=== PATIENT | male | born 1940 | race Caucasian/White ===

== ENCOUNTER 2019-01-01 16:43 | Inpatient (IN) | payer MEDICARE ==
--- NOTE | 2019-01-01 16:53 | ED ---
HPI Cardiac - HPI Summary HPI Summary: Patient is a 78 y/o M presenting to ED via EMS as a transfer from [place] with complaints of bradycardia and light-headedness. Patient states that this morning , he was driving a mini van, ate some food, sat in a chair and took a nap. When he awoke, he felt light-headed. Patient decided to measure his pulse and found that he is pulse was in 30s. He states that this onset around 1100 this morning , patient states that he has had similar Sx previously. CP and SOB are denied. PSHx of open heart surgery 8-9 years ago, patient had blocked arteries. Patient had to have stent placed due to graft failure some time afterwards. He was seen a month ago at [facility] for nuclear stress test. Patient is on metoprolol, metformin , last took these medications last night. Patient states he is also on plavix and crestor, notes that he was recently started on Lisinopril. PMHx of diabetes , angina, CAD, HTN, HLD. Patient is a former smoker, reports rare alcohol usage , denies substance usage. On triage, pain is denied, nothing is noted to aggravate/alleviate Sx. Home medications and allergies are reviewed. - History of Current Complaint Stated Complaint: BRADYCHARDIA PER EMS Hx Obtained From: Patient Onset/Duration: Started Hours Ago - onset 1100, Still Present Timing: Constant, Lasting Hours - onset 1100 Current Severity: None Pain Intensity: 0 Pain Scale Used: 0-10 Numeric Character: Other: - bradycardia Aggravating Factor(s): Nothing Alleviating Factor(s): Nothing Associated Signs and Symptoms: Positive: Dizziness - light-headedness, Palpitations - bradycardia. Negative: Chest Pain, Shortness of Breath - Allergy/Home Medications Allergies/Adverse Reactions: Allergies Allergy/AdvReac Type Severity Reaction Status Date / Time atorvastatin [From Lipitor] Allergy Leg Cramps Verified 09/25/18 09:50 Home Medications: Home Medications Aspirin EC TAB* [Ecotrin EC Low Dose 81 MG*] 81 mg PO DAILY 01/01/19 [History Confirmed 01/01/19] Clopidogrel TAB* [Plavix TAB*] 75 mg PO DAILY 01/01/19 [History Confirmed ] Lisinopril [Lisinopril 2.5 MG-] 2.5 mg PO DAILY 01/01/19 [History Confirmed ] Metoprolol Tartrate TAB* [Lopressor TAB*] 25 mg PO DAILY 01/01/19 [History Confirmed 01/01/19] Rosuvastatin (NF) [Crestor] 20 mg PO DAILY 01/01/19 [History Confirmed 01/01/19] metFORMIN* [Glucophage 1000 MG TAB *] 1,000 mg PO BID 01/01/19 [History Confirmed 01/01/19] PMH/Surg Hx/FS Hx/Imm Hx Endocrine/Hematology History: Reports: Hx Diabetes - metformin Cardiovascular History: Reports: Hx Angina, Hx Coronary Artery Disease, Hx Hypercholesterolemia, Hx Hypertension Denies: Hx Valvular Heart Disease Respiratory History: Denies: Hx Asthma, Hx Chronic Obstructive Pulmonary Disease (COPD) - Family History Known Family History: Positive: Other - FMHx of hodgkin's lymphoma - Social History Alcohol Use: Rare Alcohol Amount: 1 drink per month Substance Use Type: Reports: None Smoking Status (MU): Former Smoker Review of Systems Positive: Palpitations - bradycardia . Negative: Chest Pain Negative: Shortness Of Breath Neurological: Other - POSITIVE - DIZZINESS All Other Systems Reviewed And Are Negative: Yes Physical Exam - Summary Physical Exam Summary: Appearance: Well-appearing, Well-nourished, lying in bed comfortably Skin: Warm, dry, no obvious rash Eyes: sclera anicteric, no conjunctival pallor ENT: mucous membranes moist, pharynx appears normal Neck: Supple, nontender Respiratory: Clear to auscultation, no signs of respiratory distress Cardiovascular: Bradycardic. Normal S1, S2. No murmurs. Normal distal pulses in tibial and radial bilaterally. Abdomen: Soft, nontender, normal active bowel sounds present Musculoskeletal: Normal, Strength/ROM Intact Neurological: A&Ox3, awake and alert, mentation is normal, speech is fluent and appropriate Psychiatric: affect is normal, does not appear anxious or depressed Triage Information Reviewed: Yes Vital Signs On Initial Exam: Initial Vitals Resp 17 01/01/19 16:48 Vital Signs Reviewed: Yes Diagnostics - Laboratory Result Diagrams: 01/01/19 18:42 01/02/19 04:50 Lab Statement: Any lab studies that have been ordered have been reviewed, and results considered in the medical decision making process. - EKG 1710 Cardiac Rate: Bradycardia - rate of 38 BPM EKG Rhythm: Sinus Bradycardia Summary of EKG Findings: EKG showed sinus bradycardia with rate of 38 BPM, third degree heart block, RBBB. Disposition - Course Course Of Treatment: Patient is a 78 y/o M presenting to ED via EMS as a transfer from [place] with complaints of bradycardia and light-headedness. Patient states that upon waking from a nap at around 1100 this morning, he felt light-headed. Patient decided to measure his pulse and found that he is pulse was in 30s. CP and SOB are denied. Patient states that he has had similar Sx previously. PSHx of open heart surgery 8-9 years ago, patient had blocked arteries. Patient had to have stent placed due to graft failure some time afterwards. He was seen a month ago at [facility] for nuclear stress test. Patient is on metoprolol, metformin, last took these medications last night. Patient states he is also on plavix and crestor, notes that he was recently started on Lisinopril. PMHx of diabetes, angina, CAD, HTN, HLD. On physical exam, patient is noted to be bradycardic. EKG showed sinus bradycardia with rate of 38 BPM, third degree heart block, RBBB.Labs showed Hgb 13.7, MPV 6.6, glucose 135, magnesium 1.8, trop 0.01, TSH 1.12. Patient's case was discussed with Dr. Hicks, patient will be admitted by Dr. Hicks and surveying crew stake runner will be consulted. 1703 - Patient's case was discussed with Dr. Watson, Dr. Watson will come to ED to evaluate the patient. 1729 - Dr. Watson had evaluated the patient , patient's case was discussed. - Diagnoses Provider Diagnoses: Third degree heart block, Bradycardia - Physician Notifications Discussed Care Of Patient With: Aide Hicks Time Discussed With Above Provider: 16:55 Instructed by Provider To: Other - Patient's case was discussed with Dr. Hicks , patient will be admitted by Dr. Hicks and surveying crew stake runner will be consulted. 1703 - Patient's case was discussed with Dr. Watson, Dr. Watson will come to ED to evaluate the patient. 173 - Dr. Watson had evaluated the patient, patient's case was discussed. Discharge - Sign-Out/Discharge Documenting (check all that apply): Patient Departure - admit All imaging exams completed and their final reports reviewed: No Studies Patient Received Moderate/Deep Sedation with Procedure: No - Discharge Plan Condition: Good Disposition: ADMITTED TO [facility] - Billing Disposition and Condition Condition: GOOD Disposition: Admitted to [facility] - Attestation Statements Document Initiated by Jose L: Yes Documenting Scribe: PANTERA TITUS Provider For Whom Jose L is Documenting (Include Credential): KIMMIE BOONE MD Scribe Attestation: IPANTERA, scribed for KIMMIE BOONE MD on 01/02/19 at 1022. Scribe Documentation Reviewed: Yes Provider Attestation: The documentation as recorded by the PANTERA haro accurately reflects the service I personally performed and the decisions made by me, KIMMIE OBONE MD Status of Scribe Document: Viewed
[2019-01-01] MEDS ORDERED: Acetaminophen TAB* 325 MG PO PRN (18:15)
[2019-01-01] MEDS ORDERED: Dextrose 50% Syringe 50 ML* 25 GM/50 ML SYRINGE IV PUSH PRN (18:22)
[2019-01-01 18:49] LABS: Hematocrit 42 % (42-52); Hemoglobin 13.7 g/dL (14.0-18.0); Mean Corpuscular HGB Conc 33 g/dL (31-36); Mean Corpuscular Hemoglobin 27 pg (27-31); Mean Corpuscular Volume 82 fL (80-94); Mean Platelet Volume 6.6 fL (7.4-10.4); Platelet Count 266 10^3/uL (150-450); Red Blood Count 5.12 10^6 /uL (4.18-5.48); Red Cell Distribution Width 15 % (10.5-15); White Blood Count 7.3 10^3/uL (3.5-10.8)
[2019-01-01 19:07] LABS: BUN/Creatinine Ratio 14.8 (8-20); Calcium 9.1 mg/dL (8.6-10.3); EGFR African American 74.6 (>60); EGFR Non-African American 61.7 (>60); Magnesium 1.8 mg/dL (1.9-2.7); Potassium 4.6 mmol/L (3.5-5.0)
[2019-01-01 19:08] LABS: Troponin I 0.01 ng/mL (<0.04)
[2019-01-01 19:47] LABS: TSH (Thyroid Stimulating Horm) 1.12 mcIU/mL (0.34-5.60)
--- NOTE | 2019-01-01 20:20 | CONS ---
CC: Dr. Loza; Dr. Abhinav Watson.* CARDIOLOGY CONSULTATION: DATE OF CONSULT: 01/01/19 REASON FOR EVALUATION: Bradycardia. CONSULTING PHYSICIAN: Dr. Bray, Dr. Aide Hicks HISTORY OF PRESENT ILLNESS: This is a very pleasant 78-year-old gentleman who was in his usual state of health until about 2 months ago. At that time, he was noted to have a low resting heart rate and Dr. Loza reduced his metoprolol from 50 mg a day to 25 mg a day. He subsequently felt better with less shortness of breath and with lightheadedness within a few days. He did well again until this afternoon. He said that he was sitting in his chair and started to get up from his chair and noticed he was lightheaded momentarily. He took his blood pressure and his blood pressure was normal, but his heart rate was 38 on his home blood pressure unit. So, he came to [facility], again he was noted to be in bradycardia with a junctional escape with a right posterior hemiblock and right bundle-branch block and AV dissociation. He was transferred here for further evaluation. He denies any syncope or near syncope , shortness of breath, orthopnea chest pain, edema, and actually he was feeling well. 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 He does have a history of coronary artery disease and he underwent coronary bypass grafting in 2010 at [facility]. At that time, he had a three vessel coronary disease. He subsequently had a catheterization in 2012 and said he had a stent placed in his vein graft and a stent placed in his [place] artery. He has a history of hypertension, diabetes, hyperlipidemia, tobacco use, discontinued in 1981. He denied any tick bite fevers, chills, sweats. No rashes. PAST SURGICAL HISTORY: Includes a left hernia repair and coronary bypass grafting in 2010. MEDICATIONS: Include: 1. Metformin 1000 mg b.i.d. 2. Aspirin 81 mg a day. 3. Metoprolol tartrate 25 mg once a day. 4. Lisinopril 2.5 mg a day. 5. Rosuvastatin 20 mg a day. 6. Plavix 75 mg a day. ALLERGIES: LIPITOR make legs weak, he is able to tolerate rosuvastatin. SOCIAL HISTORY: He is , has 9 children. He has a brother, who has a AFib and 4 sisters who are alive and well. He has a rare alcohol and he drinks 1 caffeinated beverage a day. REVIEW OF SYSTEMS: He denies fevers, chills, sweats, nausea or vomiting, diarrhea or ashes. Review of systems x10 was negative except as above. PHYSICAL EXAM: He is a well-developed, well-nourished gentleman, in no apparent distress. No significant JVD. Atraumatic normocephalic. Extraocular muscles intact. Sclerae anicteric. Cardiac Exam: S1, S2 with a 1/6 systolic ejection murmur at the left sternal border. Chest was clear. No CVAT. Abdomen : Obese, bowel sounds presents, nontender. No hepatosplenomegaly. Femoral pulses were intact without bruits. Distal pulses intact. No edema. Motor strength was 5/5 bilaterally. Deep tendon reflexes is 2/4. Alert and oriented x3. No cervical adenopathy. No rashes. His pulse was 38, blood pressure 140/62. DIAGNOSTIC STUDIES/LAB DATA: Chest x-ray revealed widened mediastinum from heart, status post sternotomy. It was thought that the widening of the mediastinum was secondary to the AP technique and there was no significant change compared to 08/25/18. His EKG revealed left posterior hemiblock, and right bundle-branch block with AV dissociation. Heart rate is 38. He had a stress test back a few months ago with rhythm was sinus with right bundle-branch block and left posterior hemiblock. Laboratories include hematocrit of 42.2, slightly decreased, platelet count is 240. Troponin I is 0.003, within normal limits. His creatinine was elevated at 1.3, potassium elevated at 5.6. Pharmacologic stress: 2.5. LVEF 54%, Mid to basal inferior defect, fixed. No ischemia. low risk. IMPRESSION AND PLAN: My impression is that Mr. Marinelli appears to have developed bradycardia with lightheadedness. He is asymptomatic at present, but has what appears to be chronic degenerative conducting system disease as well as recent development of symptomatic bradycardia with AV block. I think most likely he would benefit from a pacemaker over the long-term, although the metoprolol may be exacerbating his bradycardia at this point in time. He also has a history of diabetes, hypertension, hyperlipidemia, renal insufficiency, and coronary disease. For the time being, I recommend the followin. Would observe in ICU, off his metoprolol. 2. Would repeat his troponin and potassium and follow a check of TSH. 3. Would hold his Plavix for now. 4. Recommend evaluation for pacemaker. I explained to him that he might require a temporary pacemaker or external pacing if he has symptomatic bradycardia while at bed rest. However, given his stability now, he would like to defer a temporary wire unless needed. 5. D/w Dr. Bray and Dr. Hicks. The case was discussed with his admitting hospitalist. MEDICAL DECISION MAKING: Complex. [id number]/CPS #: [id number] MTDYair
[2019-01-01] MEDS ORDERED: Magnesium Sulfate 2 GM IV* 2 GM/50 ML BAG IVPB ONE (21:48)
[2019-01-01] MEDS: CMCS:Rosuvastatin (NF) 20 MG TAB PO SCH (22:31)
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
[2019-01-02 05:23] LABS: BUN/Creatinine Ratio 15.4 (8-20); Calcium 8.9 mg/dL (8.6-10.3); EGFR African American 73.1 (>60); EGFR Non-African American 60.4 (>60); Magnesium 2.2 mg/dL (1.9-2.7); Potassium 4.3 mmol/L (3.5-5.0)
[2019-01-02] MEDS: Insulin LISPRO* 1 UNITS UNIT SUBCUT SCH ×3 (07:28→16:57)
--- NOTE | 2019-01-02 08:27 | PN ---
Subjective Date of Service: 01/02/19 Interval History: No events overnight. Admitted to ICU yesterday evening for symptomatic bradycardia. Pt denies symptoms, but also has been on bedrest. Likely to procedure today with Dr. Ram. HR has not improved with holding of metoprolol. Objective Active Medications: Acetaminophen (Tylenol Tab*) 975 mg PO Q8H PRN PRN Reason: FEVER/PAIN Aspirin (Aspirin Ec Tab*) 81 mg PO DAILY REPLACED BY [facility] Dextrose (D50w Syringe 50 Ml*) 12.5 gm IV PUSH .FOR FS < 60 - SS PRN PRN Reason: FS < 60 Insulin Human Lispro (Humalog*) 0 units SUBCUT AC REPLACED BY [facility]; Protocol Last Admin: 01/02/19 07:28 Dose: Not Given Rosuvastatin Calcium (Crestor (Nf)) 20 mg PO BEDTIME REPLACED BY [facility] Last Admin: 01/01/19 22:31 Dose: 20 mg Vital Signs - 8 hr 01/02/19 01/02/19 01/02/19 00:51 01:00 02:00 Temperature Pulse Rate 36 35 Respiratory 12 12 18 Rate Blood Pressure 118/60 (mmHg) O2 Sat by Pulse 97 97 Oximetry 01/02/19 01/02/19 01/02/19 02:01 02:39 03:00 Temperature Pulse Rate 35 35 Respiratory 15 17 13 Rate Blood Pressure 140/53 133/64 (mmHg) O2 Sat by Pulse 96 98 Oximetry 01/02/19 01/02/19 01/02/19 03:39 03:58 04:00 Temperature 97.6 F Pulse Rate 34 Respiratory 13 16 Rate Blood Pressure (mmHg) O2 Sat by Pulse 94 Oximetry 01/02/19 01/02/19 01/02/19 04:01 04:58 05:00 Temperature Pulse Rate 34 35 Respiratory 18 16 13 Rate Blood Pressure 106/53 (mmHg) O2 Sat by Pulse 94 95 Oximetry 01/02/19 01/02/19 01/02/19 05:01 05:27 06:01 Temperature Pulse Rate 34 34 Respiratory 18 14 17 Rate Blood Pressure 120/56 131/55 (mmHg) O2 Sat by Pulse 95 95 Oximetry 01/02/19 01/02/19 01/02/19 06:39 07:01 08:00 Temperature Pulse Rate 36 36 Respiratory 14 15 14 Rate Blood Pressure 123/67 (mmHg) O2 Sat by Pulse 95 96 Oximetry 01/02/19 08:01 Temperature Pulse Rate 36 Respiratory 19 Rate Blood Pressure 132/58 (mmHg) O2 Sat by Pulse 97 Oximetry Oxygen Devices in Use Now: None Appearance: well appearing, alert and conversant Eyes: No Scleral Icterus Ears/Nose/Mouth/Throat: Clear Oropharnyx, Mucous Membranes Moist Neck: NL Appearance and Movements; NL JVP Respiratory: Clear to Auscultation Cardiovascular: - - bradycardic, regular rhythm, no mgr Abdominal: NL Sounds; No Tenderness; No Distention Lymphatic: No Cervical Adenopathy Extremities: No Edema, No Clubbing, Cyanosis Skin: No Rash or Ulcers Neurological: Alert and Oriented x 3 Result Diagrams: 01/01/19 18:42 01/02/19 04:50 Assess/Plan/Problems-Billing Assessment: 78-year-old man with coronary artery disease, status post coronary artery bypass graft and subsequent percutaneous coronary intervention x2, diabetes mellitus type 2, hypertension, obesity, presenting with symptomatic bradycardia. - Patient Problems (1) Heart block atrioventricular Comment: Holding home metoprolol. Holding Plavix for procedure. Appreciate cardiology recs. May go for PPM today. (2) CAD (coronary artery disease) of artery bypass graft Comment: cont ASA and home statin (3) Diabetes mellitus Comment: cont ISS with fingersticks (4) Hypertension Comment: holding home lisinopril 2.5 given hyperkalemia at [place]; will consider amlodipine in BPs are elevated after PPM placement
[2019-01-02] MEDS: Aspirin EC TAB* 81 MG TAB.EC PO SCH (09:04)
[2019-01-02] MEDS ORDERED: Perflutren Lipid Microsphere* 3 ML VIAL ONE (10:06)
[2019-01-02] MEDS ORDERED: ceFAZolin 2 GM PREMIX in ORs 2 GM/50 ML BAG IVPB ONE (12:21)
[2019-01-02] MEDS ORDERED: NS 0.9% 1000 ML** 1,000 ML IV SCH (12:30)
[2019-01-02] MEDS ORDERED: Iohexol 180 (CONTRAST) 10 ML SDV IV ONE (13:40)
[2019-01-02] MEDS ORDERED: Midazolam* 1 MG/ML 5 ML VIAL (5 MG) ONE (13:40)
[2019-01-02] MEDS ORDERED: Lidocaine 1% INJ* 10 MG/ML 30 ML SDV ONE (13:40)
[2019-01-02] MEDS ORDERED: fentaNYL* 50 MCG/ML 2 ML VIAL (100 MCG VIAL) ONE (13:40)
--- NOTE | 2019-01-02 15:46 | PN ---
Subjective Date of Service: 01/02/19 - CC: weakness Interval History: Pt continues to feel weak, not dizzy, no syncope. No chest pain. No orthopnea or PND. Medications Active Medications: Acetaminophen (Tylenol Tab*) 975 mg PO Q8H PRN PRN Reason: FEVER/PAIN Aspirin (Aspirin Ec Tab*) 81 mg PO DAILY [facility] Last Admin: 01/02/19 09:04 Dose: 81 mg Dextrose (D50w Syringe 50 Ml*) 12.5 gm IV PUSH .FOR FS < 60 - SS PRN PRN Reason: FS < 60 Sodium Chloride (Ns 0.9% 1000 Ml) 1,000 mls @ 100 mls/hr IV PER RATE [facility] Last Admin: 01/02/19 12:39 Dose: 100 mls/hr Cefazolin Sodium 1 gm/ Sodium (Chloride) 50 mls @ 200 mls/hr IVPB Q8H [facility] Stop: 01/03/19 08:14 Insulin Human Lispro (Humalog*) 0 units SUBCUT AC [facility]; Protocol Last Admin: 01/02/19 11:07 Dose: Not Given Metoprolol Succinate (Toprol Xl Tab*) 25 mg PO DAILY [facility] Rosuvastatin Calcium (Crestor (Nf)) 20 mg PO BEDTIME [facility] Last Admin: 01/01/19 22:31 Dose: 20 mg Objective Vital Signs: Temp Pulse Resp BP Pulse Ox 97.1 F 38 16 144/66 96 01/02/19 11:56 01/02/19 13:01 01/02/19 13:01 01/02/19 13:01 01/02/19 13:01 Oxygen Devices in Use Now: None Appearance: Stocky older gentleman, lying in hospital bed, comfortable. Eyes: No Scleral Icterus, PERRLA Ears/Nose/Mouth/Throat: NL Teeth, Lips, Gums, Mucous Membranes Moist Neck: NL Appearance and Movements; NL JVP, Trachea Midline Respiratory: Symmetrical Chest Expansion and Respiratory Effort, Clear to Auscultation Cardiovascular: RRR - bradycardic Abdominal: NL Sounds; No Tenderness; No Distention, No Hepatosplenomegaly Extremities: - - trace to mild edema, warm. Skin: No Rash or Ulcers - old sternotomy scar well healed. Neurological: Alert and Oriented x 3, NL Muscle Strength and Tone Lines/Tubes/Other Access: Clean, Dry and Intact Peripheral IV Laboratory Results: 01/01/19 18:42 01/02/19 04:50 TSH 1.12 mcIU/mL (0.34-5.60) 01/01/19 18:42 01/01/19 18:42 Troponin I 0.01 Diagnostic Imaging: Echo: mild LVH, EF 55-60%, mild . EKG Data: NSR 80's. AV dissociation with low junctional vs. ventricular escape rhythm in the 30's. Assessment/Plan 78 yo with weakness and 3rd degree HB. Dual chamber pacer implanted w/o problems. Heart block: recent tick bite, will check Lyme titre, but likely degenerative. S/p pacer. CAD: Resumed metoprolol. Continue statin and optimization of other risk factors, DM, weight, lifestyle, BP. Hold Plavix for now to prevent bleeding, but can resume in a few days when bleeding risk is lower. Will arrange for wound check in a week and full pacer f/u in 1 month approx. Will discuss if the patient wishes to see DR Watson in [place] or f/u with cardiology in [place] (Dr Mackenzie).
--- NOTE | 2019-01-02 16:12 | ECHO ---
*[facility]* [place] [address] Fax #: [phone] Transthoracic Echocardiogram (Report amended [id number]) Patient: Yves, Height: 72 in / Gabe Parmar 182.9 cm : 1940 Weight: 247.5 lb / Study Date: 01/02/2019 112.5 kg Age: 78 BP: 136 / 60 Gender: M BMI/BSA: 33.6 kg/m^2 HR: 46 bpm / 2.33 m^2 *Loan Expeditor: Katy Jackson [facility] *Referring Physician: * Maria Del Carmen Ram MD *Reading Physician: * Maria Del Carmen Ram MD Indications: Abnormal EKG. History: Coronary artery disease. Risk factors: Hypertension. Diabetes mellitus. Dyslipidemia. Labs, prior tests, procedures, and surgery: Catheterization. There was a stenosis which was treated with a stent. Coronary artery bypass grafting. Conclusions Summary: 1. Left ventricle: The cavity size is at the upper limits of normal. Wall thickness is mildly increased. Systolic function is normal. The estimated ejection fraction is 50-55%. 2. Right ventricle: The cavity size is normal. Wall thickness is mildly increased. Systolic function is low normal. 3. Aortic valve: The findings are consistent with mild stenosis. The mean systolic gradient is 9.0 mm Hg. The valve area by the velocity-time integral method is 1.60 cm^2. 4. Prior echocardiogram not available at this time to compare. Study data: Transthoracic echocardiogram. Procedure: Transthoracic echocardiography was performed. Image quality was adequate. Intravenous Definity , 2 mlswas administered. Image enhancement administered by BIBI Smith. Complete 2D, spectral Doppler, and color flow Doppler. Location: ICU Patient status: Inpatient. Patient room number: 3. Rhythm: Heart block. Findings Left ventricle: The cavity size is at the upper limits of normal. Wall thickness is mildly increased. Systolic function is normal. The estimated ejection fraction is 50-55%. Wall motion is normal; there are no regional wall motion abnormalities, mild dysychrony noted. There is no consistent Doppler evidence of clinically significant diastolic dysfunction. Right ventricle: The cavity size is normal. Wall thickness is mildly increased. Systolic function is low normal. Left atrium: The atrium is mildly dilated. Right atrium: The atrium is mildly dilated. Mitral valve: The leaflets are normal thickness. There is no evidence of stenosis. There is trivial regurgitation. Aortic valve: The valve is probably trileaflet. The leaflets are mildly thickened. Cusp separation is reduced. The findings are consistent with mild stenosis. There is no significant regurgitation. Tricuspid valve: The leaflets are normal thickness. There is no evidence of stenosis. There is no significant regurgitation. Pulmonic valve: The leaflets are normal thickness. There is no evidence of stenosis. There is trivial regurgitation. Aorta: The aorta is normal. Pericardium: There is no significant pericardial effusion. Pulmonary arteries: The main pulmonary artery is normal-sized. Systemic veins: Inferior vena cava: Not well visualized. Measurements Left ventricle Value Ref Aortic valve Value Ref SHELDON, LAX 5.5 cm 4.2 - 5.8 Max diam, ED 2.3 cm ---- ESD, LAX 3.3 cm 2.5 - 4.0 Peak v, S 2.1 m/sec ---- FS, LAX 40 % 25 - 43 VTI, S 48.0 cm ---- PW, ED, LAX (H) 1.2 cm 0.6 - 1.0 Accel time 90 ms ---- EF 70 % 52 - 72 Mean grad, S 9.0 mm Hg ---- E', lat max, TDI 17.6 cm/sec >=10.0 Peak grad, S 18.0 mm Hg --- - E/e', lat max, 4 LVOT/AV, VTI ratio 0.4 ---- TDI JOSE L, VTI 1.60 cm^2 ---- E', med max, TDI 15.8 cm/sec >=7.0 JOSE L, Vmax 1.60 cm^2 --- - E/e', med max, 5 TDI Mitral valve Value Ref E', avg, TDI 16.7 cm/sec Peak E 0.79 m/sec ---- E/e', avg, TDI 5 <=14 Peak A 0.93 m/sec --- - Decel time 193 ms ---- LVOT Value Ref Peak grad, D 2.5 mm Hg ---- Diam, S 2.30 cm Peak E/A ratio 0.8 ---- Area 4.2 cm^2 Peak erika, S 0.84 m/sec Pulmonic valve Value Ref VTI, S 19.0 cm Peak v, S 0.72 m/sec ---- Mean grad, S 2 mm Hg Peak grad, S 2.0 mm Hg ---- SV 81 ml Aortic root Value Ref Ventricular septum Value Ref Root diam 3.2 cm <4.4 IVS, ED (H) 1.3 cm 0.6 - 1.0 Ascending aorta Value Ref Right ventricle Value Ref AAo AP diam, S 3.3 cm ---- SHELDON, LAX 3.5 cm SHELDON minor ax, A4C 3.3 cm 1.9 - 3.5 Aortic arch Value Ref mid Arch diam 2.9 cm ---- Left atrium Value Ref Decending aorta Value Ref AP dim, ES 3.90 cm 3.00 - Jonny peak erika 1.07 m/sec ---- 4.00 ML dim, A4C 3.7 cm SI dim, A4C 7.3 cm Vol/bsa, ES, A/L 27 ml/m^2 16 - 34 Right atrium Value Ref SI dim, ES 5.3 cm 3.4 - 5.3 ML dim, ES, A4C (H) 4.5 cm 2.6 - 4.4 Estimated RAP 3 mm Hg Legend: (L) and (H) piyush values outside specified reference range. Maria Del Carmen Rosenbaum MD 01/02/2019 16:12
--- NOTE | 2019-01-02 21:23 | OP ---
CC: Dr. Abhinav Watson; Dr. 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 OPERATIVE PROCEDURE: Dual-chamber pacemaker implantation. DESCRIPTION OF PROCEDURE: The indications, risks, and benefits of the procedure had been discussed with the patient, in the presence of his sister and daughter and he was amenable to proceeding. The patient is right handed and the left subclavian fossa was prepped and draped in the usual sterile fashion. A time-out was called. Following this, 10 cc of radiopaque dye was injected in the left upper extremity outlining the left axillary and the subclavian veins. Following this , the patient received a total of 30 cc of 1% lidocaine as well as 5 mg of Versed and 25 mcg of fentanyl for sedation throughout the procedure. Using a #blade knife, a 2.5 cm incision was made in the left subclavian fossa and using Bovie and blunt dissection. Incision was extended to the level of the pectoralis muscle. Additional lidocaine was infused inferiorly and medially and using blunt dissection a small pocket was fashioned. Using modified Seldinger technique, the left subclavian vein was cannulated and a guidewire was inserted into the right atrium. This procedure was repeated with a second guidewire. Using an introducer technique, the right ventricular lead was guided to the septum and actively fixed in place. Pacing and sensing thresholds were checked and found to be good. Using the second guidewire and introducer technique, the right atrial lead was guided into the right-atrial appendage and actively fixed in place. Pacing and sensing thresholds were checked and found to be good. The leads were sutured to the pocket using 0 silk suture. The pocket was copiously irrigated using normal saline. The leads were then attached to the device, minimal pause while hooking up the ventricular lead. Following this, the device was placed in the pocket and the incision was closed using 2 layers of resorbable suture, 2-0, followed by 4-0, followed by janis and an external dressing. FINDINGS: The system is an MRI-compatible system by [employer]. The device is a [employer] [place] XT DR KATHERINE De León, serial number [id number]. The atrial lead is a Medtronic model 5076-52, serial number [id number]. The ventricular lead is a Medtronic model 5076-58, serial number [id number]. In the atrium, P-waves are sensed at 2.6 mV. The atrial lead impendence was 758 ohms with an atrial pacing threshold of 0.6 volts at 0.5 msec. R-waves are sensed at 6.9 volts. The ventricular lead impedance was 932 ohms with a ventricular pacing threshold of 0.8 volts at 0.5 msec. The patient became transiently hypotensive following the last 2 mg of Versed, but responded well to saline bolus. He was otherwise hemodynamically stable throughout the procedure. There were no other complications. Estimated blood loss was less than 5 cc. [id number]/[facility] #: [id number] MTDYair
[2019-01-02] MEDS: oxyCODONE/Acetamin 5/325 MG* TAB PO PRN (22:05)
[2019-01-02] MEDS: CMCS:Rosuvastatin (NF) 20 MG TAB PO SCH (22:05)
[2019-01-02] MEDS: ceFAZolin VIAL(*) 1 GM in NS 0.9% 50 ML* 50 ML IVPB SCH (22:46)
[2019-01-03] MEDS: oxyCODONE/Acetamin 5/325 MG* TAB PO PRN ×2 (02:53→13:17)
[2019-01-03] MEDS: ceFAZolin VIAL(*) 1 GM in NS 0.9% 50 ML* 50 ML IVPB SCH ×2 (06:06→14:15)
[2019-01-03 08:02] LABS: Hematocrit 41 % (42-52); Hemoglobin 13.5 g/dL (14.0-18.0); Mean Corpuscular HGB Conc 33 g/dL (31-36); Mean Corpuscular Hemoglobin 27 pg (27-31); Mean Corpuscular Volume 82 fL (80-94); Mean Platelet Volume 6.4 fL (7.4-10.4); Platelet Count 223 10^3/uL (150-450); Red Blood Count 5.03 10^6 /uL (4.18-5.48); Red Cell Distribution Width 15 % (10.5-15); White Blood Count 9.4 10^3/uL (3.5-10.8)
[2019-01-03 08:13] LABS: Calcium 8.9 mg/dL (8.6-10.3); Potassium 4.4 mmol/L (3.5-5.0)
[2019-01-03 08:18] LABS: BUN/Creatinine Ratio 12.4 (8-20); EGFR African American 70.4 (>60); EGFR Non-African American 58.1 (>60)
[2019-01-03] MEDS ORDERED: Metoprolol Succinate XL TAB* 25 MG PO SCH (09:00)
[2019-01-03] MEDS: Insulin LISPRO* 1 UNITS UNIT SUBCUT SCH ×2 (09:21→13:17)
[2019-01-03] MEDS: Aspirin EC TAB* 81 MG TAB.EC PO SCH (09:21)
--- NOTE | 2019-01-03 09:33 | PN ---
Subjective Date of Service: 01/03/19 Interval History: Lyme titers negative. Pacer placed yesterday. Tolerated procedure well. Metoprolol resumed. Can start Plavix in a few days. Starting amlodipine for elevated BPs - had hyperkalemia with [facility] prior to transfer here. Objective Active Medications: Acetaminophen (Tylenol Tab*) 975 mg PO Q8H PRN PRN Reason: FEVER/PAIN Aspirin (Aspirin Ec Tab*) 81 mg PO DAILY [facility] Last Admin: 01/03/19 09:21 Dose: 81 mg Dextrose (D50w Syringe 50 Ml*) 12.5 gm IV PUSH .FOR FS < 60 - SS PRN PRN Reason: FS < 60 Cefazolin Sodium 1 gm/ Sodium (Chloride) 50 mls @ 200 mls/hr IVPB Q8H [facility] Stop: 01/03/19 14:14 Last Admin: 01/03/19 06:06 Dose: 200 mls/hr Insulin Human Lispro (Humalog*) 0 units SUBCUT AC [facility]; Protocol Last Admin: 01/03/19 09:21 Dose: 3 unit Metoprolol Succinate (Toprol Xl Tab*) 25 mg PO DAILY [facility] Last Admin: 01/03/19 09:20 Dose: 25 mg Oxycodone/Acetaminophen (Percocet 5/325 Tab*) 1 tab PO Q3H PRN PRN Reason: PAIN - MODERATE Last Admin: 01/03/19 02:53 Dose: 1 tab Rosuvastatin Calcium (Crestor (Nf)) 20 mg PO BEDTIME [facility] Last Admin: 01/02/19 22:05 Dose: 20 mg Vital Signs - 8 hr 01/03/19 01/03/19 01/03/19 02:53 03:06 06:10 Temperature 97.7 F Pulse Rate 80 Respiratory 16 18 16 Rate Blood Pressure 155/88 (mmHg) O2 Sat by Pulse 96 Oximetry 01/03/19 01/03/19 01/03/19 07:00 08:00 08:20 Temperature 98.5 F Pulse Rate 69 Respiratory 18 18 Rate Blood Pressure 147/78 (mmHg) O2 Sat by Pulse 96 97 Oximetry Oxygen Devices in Use Now: None Appearance: well appearing, alert and friendly Ears/Nose/Mouth/Throat: Mucous Membranes Moist Neck: NL Appearance and Movements; NL JVP, No Thyroid Enlargement, Masses Respiratory: Symmetrical Chest Expansion and Respiratory Effort, Clear to Auscultation Cardiovascular: NL Sounds; No Murmurs; No JVD, RRR Abdominal: NL Sounds; No Tenderness; No Distention, No Hepatosplenomegaly, - - obese Lymphatic: No Cervical Adenopathy Extremities: No Edema Skin: No Rash or Ulcers, - - PPM site c/d/i; mild tenderness, no e/o hematoma Neurological: Alert and Oriented x 3, NL Sensation, NL Gait Result Diagrams: 01/03/19 07:56 01/03/19 07:56 Assess/Plan/Problems-Billing Assessment: 78-year-old man with coronary artery disease, status post coronary artery bypass graft and subsequent percutaneous coronary intervention x2, diabetes mellitus type 2, hypertension, obesity, presenting with symptomatic bradycardia. - Patient Problems (1) Heart block atrioventricular Comment: s/p PPM. Restarting metoprolol. Cont aspirin. To start plavix after cards clinic. (2) CAD (coronary artery disease) of artery bypass graft Comment: cont ASA and home statin (3) Diabetes mellitus Comment: cont ISS with fingersticks (4) Hypertension Comment: start amlodipine
--- NOTE | 2019-01-03 10:34 | PN ---
<ToddaprylNkechi - Last Filed: 01/03/19 10:51> Subjective Date of Service: 01/03/19 - high degree AVB s/p PPM 01/02/2019 Interval History: s/p PPM implant 01/02/[address] Ram. No events last night. No c/o chest pain, sob, dizziness or palpitations. I spoke with BIBI Padilla caring for the patient who denies any overnight events. Medications Active Medications: Acetaminophen (Tylenol Tab*) 975 mg PO Q8H PRN PRN Reason: FEVER/PAIN Amlodipine Besylate (Norvasc Tab*) 5 mg PO DAILY [facility] Aspirin (Aspirin Ec Tab*) 81 mg PO DAILY [facility] Last Admin: 01/03/19 09:21 Dose: 81 mg Dextrose (D50w Syringe 50 Ml*) 12.5 gm IV PUSH .FOR FS < 60 - SS PRN PRN Reason: FS < 60 Cefazolin Sodium 1 gm/ Sodium (Chloride) 50 mls @ 200 mls/hr IVPB Q8H [facility] Stop: 01/03/19 14:14 Last Admin: 01/03/19 06:06 Dose: 200 mls/hr Insulin Human Lispro (Humalog*) 0 units SUBCUT AC [facility]; Protocol Last Admin: 01/03/19 09:21 Dose: 3 unit Metoprolol Succinate (Toprol Xl Tab*) 25 mg PO DAILY [facility] Last Admin: 01/03/19 09:20 Dose: 25 mg Oxycodone/Acetaminophen (Percocet 5/325 Tab*) 1 tab PO Q3H PRN PRN Reason: PAIN - MODERATE Last Admin: 01/03/19 02:53 Dose: 1 tab Rosuvastatin Calcium (Crestor (Nf)) 20 mg PO BEDTIME [facility] Last Admin: 01/02/19 22:05 Dose: 20 mg Objective Vital Signs: Temp Pulse Resp BP Pulse Ox 98.5 F 69 18 147/78 97 01/03/19 08:20 01/03/19 08:20 01/03/19 08:20 01/03/19 08:20 01/03/19 08:20 Oxygen Devices in Use Now: None Appearance: Stocky older gentleman, lying in hospital bed, comfortable. Eyes: No Scleral Icterus, PERRLA Ears/Nose/Mouth/Throat: NL Teeth, Lips, Gums, Mucous Membranes Moist Neck: NL Appearance and Movements; NL JVP, Trachea Midline Respiratory: Symmetrical Chest Expansion and Respiratory Effort, Clear to Auscultation Cardiovascular: NL Sounds; No Murmurs; No JVD - left anterior chest device site intact, scant dried blood noted on dressing. no hematoma. non tender to palpation. edges well approximated with [address] RRR Abdominal: NL Sounds; No Tenderness; No Distention, No Hepatosplenomegaly Extremities: - - trace to mild edema, warm. Skin: No Rash or Ulcers - old sternotomy scar well healed. Neurological: Alert and Oriented x 3, NL Muscle Strength and Tone Lines/Tubes/Other Access: Clean, Dry and Intact Peripheral IV Laboratory Results: 01/03/19 07:56 01/03/19 07:56 TSH 1.12 mcIU/mL (0.34-5.60) 01/01/19 18:42 01/01/19 18:42 Troponin I 0.01 Laboratory Results - last 24 hr 01/02/19 01/02/19 01/02/19 11:16 16:53 18:40 WBC RBC Hgb Hct MCV MCH MCHC RDW Plt Count MPV Sodium Potassium Chloride Carbon Dioxide Anion Gap BUN Creatinine Est GFR ( Amer) Est GFR (Non-Af Amer) BUN/Creatinine Ratio Glucose POC Glucose (mg/dL) 150 H 152 H Calcium Magnesium Lyme Total Antibody Negative 01/03/19 01/03/19 01/03/19 07:49 07:56 07:56 WBC 9.4 RBC 5.03 Hgb 13.5 L Hct 41 L MCV 82 MCH 27 MCHC 33 RDW 15 Plt Count 223 MPV 6.4 L Sodium 138 Potassium 4.4 Chloride 108 Carbon Dioxide 23 Anion Gap 7 BUN 15 Creatinine 1.21 H Est GFR ( Amer) 70.4 Est GFR (Non-Af Amer) 58.1 BUN/Creatinine Ratio 12.4 Glucose 187 H POC Glucose (mg/dL) 184 H Calcium 8.9 Magnesium 2.0 Lyme Total Antibody Diagnostic Imaging: Echo: mild LVH, EF 55-60%, mild . EKG Data: NSR 80's. AV dissociation with low junctional vs. ventricular escape rhythm in the 30's. Assessment/Plan #1 Symptomatic Third Degree Heart Block s/p DC PPM 01/02/2019. Lyme titer negative. normal wall motion on echo. Echo did not reveal RWMA. CXR is pending. Device check reviewed. Atral lead pacing threshold 0.4 ms, RV lead pacing threshold 0.4ms. normal device function. occasional PVc. PAC. 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 He has a follow up appointment next week with Dr. Ram. Future follow up appointments will need to be addressed with the patient to determine if he wishes to follow or see Dr. Mackenzie at [place]. He will need to go home on Keflex 250mg PO TID. No evidence of hematoma, device site is intact. activity restrictions as outlined in discharge summary. He is to wear arm sling as directed. #2 h/o CAD with prior CABG; On ASA, statin and Bblocker therapy. will address Plavix re initiation in follow up. #3 h/o HTN; BP 147/78. On Toprol, Patient had hyperkalemia on Lisinopril 2.5mg/ day. ACEI stopped now on norvasc. #4 Disposition pending course. If CXR is negative for pneumothorax will sign off. will d/w Dr. Ram. Attending: Maria Del Carmen Ram <Maria Del Carmen Ram - Last Filed: 01/03/19 17:46> Objective Vital Signs: Temp Pulse Resp BP Pulse Ox 98.3 F 63 18 152/75 96 01/03/19 12:17 01/03/19 12:17 01/03/19 13:17 01/03/19 12:17 01/03/19 12:17 Laboratory Results: 01/03/19 07:56 01/03/19 07:56 TSH 1.12 mcIU/mL (0.34-5.60) 01/01/19 18:42 01/01/19 18:42 Troponin I 0.01 Assessment/Plan The patient was seen by and examined personally. Patient no longer feels weak. The patient's post op CXR's show good lead placement and thresholds today are good. I agree with the above recommendations and plans.
[2019-01-03] MEDS: amLODIPine TAB* 5 MG PO SCH ×2 (10:41→11:08)
[2019-01-03 13:36] VITALS: BP 152/75
--- NOTE | 2019-01-04 01:06 | DS ---
CC: Dr. Chan Loza; Dr. Maria Del Carmen Ram; Dr. Abhinav Watson * DISCHARGE SUMMARY: DATE OF ADMISSION: 01/01/19 DATE OF DISCHARGE: 01/03/19 PRIMARY CARE PHYSICIAN: Dr. Chan Loza. PRIMARY DIAGNOSIS: AV heart block, symptomatic. SECONDARY DIAGNOSES: 1. Coronary artery disease, status post CABG. 2. Hypertension. 3. Diabetes. 4. Obesity. CONSULTS: Cardiology: Dr. Maria Del Carmen Ram and Dr. Abhinav Watson. Permanent pacemaker placement on 01/02/19. DISCHARGE MEDICATIONS: 1. Metoprolol succinate 25 mg daily. 2. Keflex 250 three times a day for 3 days after procedure. 3. Amlodipine 5 mg nightly. 4. Aspirin 81 mg daily. 5. Metformin 1 g twice a day. 6. Rosuvastatin 20 mg nightly. 7. Plavix to be re-initiated on outpatient followup. HISTORY OF PRESENT ILLNESS: 78-year-old man with CAD, status post CABG with subsequent stenting, hypertension, diabetes, obesity, who presents after noting a low resting heart rate on his blood pressure cuff on morning of presentation. He reports that he was in his usual state of health until this morning when he went from a seated to standing position, experienced lightheadedness. At that time, he decided to take his blood pressure because sometimes if he is lightheaded he does notice that his blood pressure is low. He states this morning when he checked his blood pressure, he noted it was normal, but his heart rate was in the 30s, so he presented to [facility]. He reports that he does take metoprolol at home and had recently gotten down on his dose from 50 mg daily to 25 given lower resting heart rate noted by his primary care physician. At [facility], he was still in bradycardia with a junctional escape and right posterior laine-block and right bundle-branch block with AV dissociation, so he was transferred to [facility] for further evaluation. He denies lightheadedness while seated or lying flat, but has not gotten up in the hospital to see how he feels on positional change. He denies syncope, palpitations, shortness of breath, chest pain, orthopnea, or lower extremity edema. HOSPITAL COURSE: The patient was admitted to the ICU to be placed on pacer pads and was seen by Cardiology. His Plavix and metoprolol were held and his home lisinopril was discontinued given hyperkalemia seen at [facility]. He was evaluated by Cardiology, who recommended a permanent pacemaker, which was placed on 01/02/19. His Lyme titers were negative. His echo was unremarkable. Given normal heart rate for 24 hours after procedure with no recurrence of symptoms on walking, the patient was discharged home with close Cardiology followup. PERTINENT DIAGNOSTIC STUDIES: Lyme titer is negative. Hemoglobin 13.5 with MCV 82. TSH 112. Transthoracic echocardiogram with LV cavity size of upper limits of normal with wall thickness mildly increased. The valve function is normal with estimated EF 50% to 55%. RV with normal cavity size and mildly increased wall thickness with low normal systolic function. Aortic valve with mild stenosis. The mean systolic gradient is 9.0 mmHg and the valve area by the velocity time integral method is 1.60 cm squared. Chest x-ray without active cardiopulmonary disease. DISCHARGE PLAN: The patient is to follow up post device with asphalt layer, Dr. Maria Del Carmen Ram, and will continue to follow closely with his primary care physician. His medications are notable for the following changes: Lisinopril discontinued due to hyperkalemia on 2.5 mg daily. He was initiated on amlodipine for blood pressure control. He was given a 3-day course of oral Keflex to prevent device infection and he was reinitiated on metoprolol succinate 25 mg daily. He was educated on return precautions which include but not limited to recurrence of low heart rate or increasing pain, swelling, or erythema from device site. Discharge instructions related to new implantation of pacemaker were given with extensive discussion between the patient and Cardiology for followup. DISPOSITION: To home. CONDITION: Good. TIME SPENT: Approximately 60 minutes spent on discharge of this patient, more than half of which was spent with care coordination at bedside for interview and exam. [id number]/[facility] #: [id number] RIC
== END 2019-01-03 15:30 | disposition home or self-care (01) | DRG 244 ==
LOC: ED 16:43 → ICU 18:15 → MEDTELE 01-02 19:37
PROVIDERS: ADMIT Internal Medicine; ATTEND Internal Medicine
PROC: 02H63JZ Insertion of Pacemaker Lead into Right Atrium, Percutaneous Approach (ICD-10-PCS; 2019-01-02)
PROC: 02HK3JZ Insertion of Pacemaker Lead into Right Ventricle, Percutaneous Approach (ICD-10-PCS; 2019-01-02)
PROC: 0JH606Z Insertion of Pacemaker, Dual Chamber into Chest Subcutaneous Tissue and Fascia, Open Approach (ICD-10-PCS; principal; 2019-01-02 12:15)
DX: I44.2 Atrioventricular block, complete (principal); E11.9 Type 2 diabetes mellitus without complications; I25.10 Atherosclerotic heart disease of native coronary artery without angina pectoris; E78.00 Pure hypercholesterolemia, unspecified; I10 Essential (primary) hypertension; I45.10 Unspecified right bundle-branch block; E66.9 Obesity, unspecified; D64.9 Anemia, unspecified; R00.1 Bradycardia, unspecified; E78.5 Hyperlipidemia, unspecified; I35.0 Nonrheumatic aortic (valve) stenosis; E87.5 Hyperkalemia; T46.4X5A Adverse effect of angiotensin-converting-enzyme inhibitors, initial encounter; Y92.239 Unspecified place in hospital as the place of occurrence of the external cause; Z82.49 Family history of ischemic heart disease and other diseases of the circulatory system; Z68.33 Body mass index [BMI] 33.0-33.9, adult; Z87.891 Personal history of nicotine dependence; Z80.7 Family history of other malignant neoplasms of lymphoid, hematopoietic and related tissues; Z88.8 Allergy status to other drugs, medicaments and biological substances; Z95.1 Presence of aortocoronary bypass graft; Z79.82 Long term (current) use of aspirin; Z79.02 Long term (current) use of antithrombotics/antiplatelets; Z79.84 Long term (current) use of oral hypoglycemic drugs; Z95.5 Presence of coronary angioplasty implant and graft
CPT/HCPCS: 33208; 36415; 71045; 71046; 80048; 83735; 84443; 84484; 85027; 86618; 93005; 93306; 99156; 99157; 99285; A9270-GY; C1785; C1892; C1898; C8929; J0690; J2250; J3010; J3475